=== PATIENT | female | born 1995 | race Two or more races ===

== ENCOUNTER 2017-12-06 15:39 | Emergency (ER) | payer OTHER ==
[~2017-12-06] VITALS: Ht 154.9 cm; Wt 69.3 kg
[2017-12-06 15:52] VITALS: BP 112/72
[2017-12-06] MEDS ORDERED: DEXAMETHASONE 4 MG TABLET PO ONE (16:06)
[2017-12-06] MEDS ORDERED: DEXAMETHASONE 4 MG TABLET ONE (16:11)
== END 2017-12-06 16:49 | disposition home or self-care (01) ==
LOC: ED 16:41
DX: J02.0 Streptococcal pharyngitis (principal)
CPT/HCPCS: 99283

== ENCOUNTER 2017-12-30 08:10 | Emergency (ER) | payer OTHER ==
[~2017-12-30] VITALS: Ht 154.9 cm; Wt 69.0 kg
[2017-12-30 08:16] VITALS: BP 116/66
[2017-12-30] MEDS ORDERED: IBUPROFEN 200 MG TABLET ONE (09:14)
[2017-12-30] MEDS ORDERED: DEXAMETHASONE 4 MG TABLET ONE (09:14)
[2017-12-30] MEDS ORDERED: IBUPROFEN 200 MG TABLET PO ONE (09:30)
[2017-12-30] MEDS ORDERED: DEXAMETHASONE 4 MG TABLET PO ONE (09:30)
== END 2017-12-30 09:48 | disposition home or self-care (01) ==
LOC: ED 09:42
DX: J02.0 Streptococcal pharyngitis (principal); K20.9 Esophagitis, unspecified
CPT/HCPCS: 87880; 99283